=== PATIENT | female | born 1960 | race Caucasian/White ===

== ENCOUNTER 2022-11-10 09:12 | Day surgery (SDC) | payer OTHER, SELFPAY ==
--- NOTE | 2022-11-10 | PATH_ITS ---
[facility] Accession Number: [id number] No. of containers..01 Tissue . 01 Material submitted: . endometrium - ENDOMETRIAL POLYP . 01 Diagnosis: Endometrium, Biopsy: Endometrial polyp fragments. Negative for atypical hyperplasia and malignancy. [facility] 11/13/2022 1503 Local . 01 Electronically signed: . Venessa Vicente MD, Pathologist NPI- [id number] . 01 Gross description: . ENDOMETRIAL POLYP: Received in formalin is 3 fragment(s) of angelo, soft tissue measuring 0.6 x 0.4 x 0.3 cm to 0.3 x 0.2 x 0.2 cm submitted entirely in 1 cassette(s) /[facility] 11/12/2022 1242 Local . 01 Pathologist provided ICD-10: N84.0 . 01 CPT . 306783 Specimen Comment: A courtesy copy of this report has been sent to [phone] Performed at: 01 [facility] [address] [place] [address] [address], [place], [place] [id number] MD Vito Conn MD Phone: [phone]
[2022-11-10 09:55] VITALS: BP 117/74; PULSE 62; RESP 16; TEMP 36.6; O2SAT 99
[2022-11-10] MEDS: LACTATED RINGERS 1,000 ML 100 ML IV (10:15)
--- NOTE | 2022-11-10 11:28 | PM.GYNHP.1 ---
History of Present Illness History of Present Illness Reason for admission: vaginal bleeding (Postmenopausal) Narrative: Shauna Chavez is a 62 year old female 0 with postmenopausal bleeding and endometrial polyp. She presents for a D&C hysteroscopy with polypectomy. [facility] Social History household members: none Smoking Status: Never smoker alcohol intake: current Meds Home Medications and Allergies Home Medications Medication Instructions Recorded Confirmed Type diazepam 5 mg tablet 5 mg PO PRN PRN Spasms 11/10/22 11/10/22 History estradiol 0.01% (0.1 mg/gram) vaginal 11/10/22 History vaginal cream methocarbamol 500 mg tablet 500 mg PO PRN PRN Pain (Scale 11/10/22 11/10/22 History Score 4-6) pantoprazole 40 mg tablet,delayed 40 mg PO DAILY 11/10/22 11/10/22 History release Allergies Allergy/AdvReac Type Severity Reaction Status Date / Time pollen extracts AdvReac Verified 11/10/22 09:29 Exam Vital Signs (past 8 hours): - 11/10/22 09:55 Temperature 98 F Pulse Rate 62 Respiratory Rate 16 Blood Pressure 117/74 Pulse Oximetry 99 Oxygen Delivery Method Room Air Oxygen Delivery Method Room Air Narrative Exam Narrative: HEENT: No thyromegaly, no anterior cervical or supraclavicular lymphadenopathy. Lungs:Clear to auscultation bilaterally, no wheezes. Cardiovascular: Regular rate and rhythm, no murmurs, rubs, or gallops. Abdomen: No scars. No hepatosplenomegaly. No masses palpable. External genitalia: Normal Vagina: Normal Cervix: Nulliparous Bimanual exam: [6 Week size uterus. Mobile.] Ext: No edema. Assessment & Plan Assessment & Plan narrative: Assessment: 62-year-old 0 with postmenopausal bleeding and an endometrial polyp by ultrasound Plan: D&C hysteroscopy with polypectomy The risks, benefits, and alternatives to the procedure were explained to the patient. The risks including bleeding, infection, and uterine perforation. She understands these risks and agrees to proceed. A full par Q was held and consent form was signed. Time Spent With Patient Time with patient: less than 30 minutes
--- NOTE | 2022-11-10 11:31 | PM.PREOP ---
Pre-operative Note COVID-19 Criteria for continued procedure: Non-surgical alternatives not available or appropriate per current SOC Interval Note History & Physical reviewed/Exam performed by Physician: Yes Changes to H&P: No H&P completed within 30 days and has changed as indicated here:: 11/10/22
--- NOTE | 2022-11-10 12:27 | PM.GYNOP.1 ---
Operative Date/Time/Diagnoses Date of procedure: 11/10/22 Time of procedure: 12:27 Pre-op diagnosis: Postmenopausal bleeding Endometrial hyperplasia on ultrasound consistent with a polyp Post-op diagnosis: same Procedure & Clinicians Procedure: Procedures Operation Date: 11/10/22 10:45 <No data on this case meets the specified criteria> D&C hysteroscopy with resection of endometrial polyp Indications: Postmenopausal bleeding Ultrasound findings consistent with a polyp Surgeon: Echo Roberts Anesthesia Type: General (LMA) Operative Notes Findings: 6 week size anteverted uterus Both fallopian tube ostia observed Posterior endometrial polyp Closure Type: not applicable Specimen(s): endometrial polyp Estimated blood loss (mL): 5 Blood products transfused: none Procedure in detail: After informed consent was obtained, the patient was taken to the operating room where she was placed in the dorsal supine position. After adequate LMA general anesthesia was achieved, she was placed in the dorsal lithotomy position, and prepped and draped in the usual sterile fashion. A time-out was performed. A bivalve speculum was placed into the vagina and the anterior lip of the cervix was grasped with a single-tooth tenaculum. The cervical os was sequentially dilated until the hysteroscope could pass easily into the endometrial cavity. Initial inspection with the hysteroscope revealed the findings noted above. The hysteroscope was removed. The cervix was dilated further to the # 10 Hegar dilator. The fluids were changed to sorbitol and the lines were purged. The resectoscope passed easily into the endometrial cavity. The polyp was resected in 3 pieces using the loop with settings at 80 cut and 60 cautery. The loop was used to then cauterize the base of the polyp. Hemostasis was achieved. The resectoscope was removed from the uterus. The single-tooth tenaculum was removed from the anterior lip of the cervix. The bivalve speculum was removed from the vagina. Sponge, lap, and instrument counts were correct x2. The patient tolerated the procedure well, and was taken to PACU in stable condition. Complications: none Post-operative Condition: stable Disposition: PACU Plan for aftercare: Home after recovery
[2022-11-10 12:29] VITALS: BP 104/61; PULSE 62; RESP 15; TEMP 36.4; O2SAT 98
--- NOTE | 2022-11-10 12:33 | SUR.OPER ---
Lithotomy on padded OR bed, head on pillow, arms secured on padded arm boards at <90 degrees abduction. Legs secured in padded yellow fins stirrups.
[2022-11-10 12:34] VITALS: BP 118/69; PULSE 66; RESP 12; O2SAT 100
[2022-11-10 12:38] VITALS: BP 123/69; PULSE 60; RESP 12; O2SAT 100
[2022-11-10 12:52] VITALS: BP 137/79; PULSE 57; RESP 16; O2SAT 99
== END 2022-11-10 14:02 | disposition home or self-care (01) ==
PROVIDERS: Family Provider Family Medicine; PCP Family Medicine; Referring Provider Obstetrics & Gynecology; Visit Provider Obstetrics & Gynecology
PROC: 0UDB8ZZ Extraction of Endometrium, Via Natural or Artificial Opening Endoscopic (ICD-10-PCS; CPT 58558; principal; 2022-11-10 10:45)
DX: N95.0 Postmenopausal bleeding (principal); N84.0 Polyp of corpus uteri
CPT/HCPCS: 58558; J1100; J2405; J2704; J3010